=== PATIENT | male | born 1935 | race Caucasian/White ===

== ENCOUNTER 2016-07-11 00:57 | Observation (INO) | payer MEDICARE, OTHER ==
[~2016-07-11] VITALS: Ht 175.3 cm; Wt 84.4 kg
[~2016-07-11 00:57] MED LIST: ADULT LOW DOSE81 MG PO; AVODART0.5 MG PO; CLARITIN10 MG PO; COLACE 100MG C100 MG PO; COUMADIN1 MG PO; COZAAR 25MG TAB25 MG PO; FLOMAX 0.4 MG0.4 MG PO; FOLIC ACID 1 MG1 MG PO; IRON325 MG PO; LOPRESSOR 25 MG25 MG PO; LORCET HD 10-31 EACH PO; METAMUCIL FIBE3.4 GM PO; PROTONIX40 MG PO; SYNTHROID88 MCG PO; TRICOR145 MG PO; VALIUM 5 MG TAB5 MG PO
[2016-07-11] MEDS ORDERED: FENOFIBRATE145 MG PO (03:00)
[2016-07-11] MEDS ORDERED: RAMIPRIL1.25 MG PO (03:08)
[2016-07-11 04:15] LABS: HEMOGLOBIN 12.1 gm/dl (14.0-17.5); RED BLOOD COUNT 4.14 M/UL (4.20-5.50); WHITE BLOOD COUNT 6.7 K/UL (4.5-11.0)
[2016-07-11] MEDS ORDERED: VALIUM 2 MG TAB2 MG PO (06:32)
[2016-07-11] MEDS ORDERED: OMNICEF 300 MG300 MG PO (12:36)
[2016-07-11] MEDS ORDERED: TRICOR 145 MG145 MG PO (12:39)
[2016-12-12] MEDS ORDERED: COUMADIN3 MG PO (11:19)
== END 2016-07-11 13:39 | disposition home or self-care (01) ==
LOC: CCU 00:57 → PROG CARE 02:12
PROVIDERS: ADMIT Internal Medicine
DX: R07.89 Other chest pain (principal); J02.0 Streptococcal pharyngitis; N17.9 Acute kidney failure, unspecified; I48.0 Paroxysmal atrial fibrillation; I25.2 Old myocardial infarction; E78.5 Hyperlipidemia, unspecified; I13.0 Hypertensive heart and chronic kidney disease with heart failure and stage 1 through stage 4 chronic kidney disease, or unspecified chronic kidney disease; I50.22 Chronic systolic (congestive) heart failure; N40.0 Benign prostatic hyperplasia without lower urinary tract symptoms; D69.6 Thrombocytopenia, unspecified; K21.9 Gastro-esophageal reflux disease without esophagitis; E03.9 Hypothyroidism, unspecified; F41.9 Anxiety disorder, unspecified; N18.2 Chronic kidney disease, stage 2 (mild); D50.9 Iron deficiency anemia, unspecified; J44.9 Chronic obstructive pulmonary disease, unspecified; F17.290 Nicotine dependence, other tobacco product, uncomplicated; Z95.1 Presence of aortocoronary bypass graft; Z86.79 Personal history of other diseases of the circulatory system; Z79.82 Long term (current) use of aspirin; Z79.01 Long term (current) use of anticoagulants; Z79.891 Long term (current) use of opiate analgesic; Z79.899 Other long term (current) drug therapy; Z95.810 Presence of automatic (implantable) cardiac defibrillator; Z90.49 Acquired absence of other specified parts of digestive tract; Z88.0 Allergy status to penicillin; Z88.8 Allergy status to other drugs, medicaments and biological substances; Z82.49 Family history of ischemic heart disease and other diseases of the circulatory system
CPT/HCPCS: ECHO; 36415; 71020; 80053; 82550; 82553; 84439; 84443; 84484; 85025; 85610; 85730; 93306; 94664; 96365; 96372; G0378; G0379; J0696; J7030